=== PATIENT | female | born 1990 | race Hispanic/Latino ===

== ENCOUNTER 2024-08-26 12:33 | Emergency (ER) | payer BC, SELFPAY ==
[2024-08-26] MEDS ORDERED: diphenhydrAMINE 50 MG/ML VIAL ONE (14:27)
[2024-08-26] MEDS ORDERED: Metoclopramide HCl 10 MG (2 mL) VIAL ONE (14:27)
== END 2024-08-26 16:25 | disposition home or self-care (01) ==
LOC: CSHERS 12:33
DX: R07.2 Precordial pain (principal); R05.9 Cough, unspecified; J02.9 Acute pharyngitis, unspecified
CPT/HCPCS: 71045; 87081; 87430; 93005; 93010; 96372; J1200; J2765